=== PATIENT | female | born 1965 | race Caucasian/White ===

== ENCOUNTER 2016-09-19 21:00 | Inpatient (IN) | payer OTHER ==
[~2016-09-19] VITALS: Ht 165.1 cm; Wt 56.6 kg
[~2016-09-19 21:00] MED LIST: ABILIFY5 MG PO; AMBIEN10 MG PO; ATIVAN0.5 MG PO; COLACE100 MG PO; ENDOCET 5-3251 EACH PO; KLOR-CON SPRIN10 MEQ PO; LEXAPRO10 MG PO; SPIRIVA RESPIMAT4 GM IH; TUMS500 MG PO; TYLENOL EXTRA500 MG PO; VITAMIN C500 M1 PO
[2016-09-19 21:46] LABS: HEMATOCRIT 37.2 % (36.0-46.0); MCH 29.6 PG (29.0-34.0); MCHC 33.6 G/DL (30.0-36.0); MCV 87.9 FL (83-99); MEAN PLAT.VOLUME 9.6 uM^3 (9.5-12.4); PLATELET COUNT 244 K/uL (156-360); RBC DIS.WIDTH-CV 14.7 % (11.8-14.6); RBC DIS.WIDTH-SD 47.6 % (39-53); RED BLOOD COUNT 4.23 M/uL (3.80-5.20); WHITE BLOOD COUNT 5.9 K/uL (4.1-10.2)
[2016-09-19 21:57] LABS: CHLORIDE 106 mEq/L (99-109); POTASSIUM 4.2 mEq/L (3.7-5.4); SODIUM 142 mEq/L (136-147)
[2016-09-19 21:59] LABS: GLUCOSE 113 mg/dL (70-99)
[2016-09-19 22:00] LABS: ANION GAP 12 MEQ/L (2-14)
[2016-09-19 22:01] LABS: TOTAL BILIRUBIN 0.4 mg/dL (0.0-1.0)
[2016-09-19 22:03] LABS: ALKALINE PHOSPHATASE 69 IU/L (3-129); GFR ESTIMATE (CALCULATED) > 59 mL/min/
[2016-09-19 22:04] LABS: UREA NITROGEN (BUN) 10 mg/dL (9-23)
[2016-09-19 22:12] LABS: QUANTITATIVE HCG < 4.0 MIU/ML
[2016-09-20 01:01] VITALS: BP 125/69
[2016-09-20 04:32] VITALS: BP 118/73
[2016-09-20 08:36] VITALS: BP 95/57
[2016-09-20 12:07] VITALS: BP 101/49
[2016-09-20 16:04] VITALS: BP 96/58
[2016-09-20 19:21] VITALS: BP 95/59
[2016-09-21 00:11] VITALS: BP 110/63
[2016-09-21 03:11] VITALS: BP 101/57
[2016-09-21 07:20] LABS: EOSINOPHIL (%) 0.5 % (0-5); HEMATOCRIT 30.8 % (36.0-46.0); IMMATURE GRANULOCYTE (%) 0.3 % (0.0-0.7); INSTRUMENT ABS NEUTROPHIL CT 3.1 K/uL; LYMPHOCYTE COUNT 0.5 K/uL (1.0-2.8); MCH 29.2 PG (29.0-34.0); MCHC 32.5 G/DL (30.0-36.0); MCV 90.1 FL (83-99); MEAN PLAT.VOLUME 9.7 uM^3 (9.5-12.4); MONOCYTE (%) 7.8 % (3-12); MONOCYTE COUNT 0.3 K/uL (0-0.8); NEUTROPHIL (%) 77.4 % (45-76); NEUTROPHIL COUNT 3.1 K/uL (1.8-6.4); PLATELET COUNT 182 K/uL (156-360); RBC DIS.WIDTH-CV 14.9 % (11.8-14.6); RBC DIS.WIDTH-SD 49.7 % (39-53); RED BLOOD COUNT 3.42 M/uL (3.80-5.20)
[2016-09-21 07:31] LABS: ANION GAP 3 MEQ/L (2-14); CHLORIDE 105 MEQ/L (99-109); GFR ESTIMATE (CALCULATED) > 59 mL/min/; GLUCOSE 112 mg/dL (70-99); POTASSIUM 3.8 MEQ/L (3.7-5.4); SAMPLE HEMOLYSIS CHECK 0; SAMPLE ICTERIC CHECK 0; SAMPLE LIPEMIA CHECK 0; SODIUM 138 MEQ/L (136-147); UREA NITROGEN (BUN) 5 mg/dL (9-23)
[2016-09-21 07:57] LABS: C DIFF TOXIN NEGATIVE (NEGATIVE); PROBE CHECK PASS; SPECIMEN PROCESSING CONTROL PASS
[2016-09-21 08:00] VITALS: BP 98/60
[2016-09-21 16:00] VITALS: BP 101/57
[2016-09-21 23:28] VITALS: BP 104/65
[2016-09-22 07:46] LABS: EOSINOPHIL (%) 2.3 % (0-5); EOSINOPHIL COUNT 0.1 K/uL (0-0.3); HEMATOCRIT 29.6 % (36.0-46.0); INSTRUMENT ABS NEUTROPHIL CT 1.5 K/uL; LYMPHOCYTE COUNT 0.5 K/uL (1.0-2.8); MCH 29.5 PG (29.0-34.0); MCHC 32.4 G/DL (30.0-36.0); MCV 91.1 FL (83-99); MEAN PLAT.VOLUME 10.1 uM^3 (9.5-12.4); MONOCYTE COUNT 0.2 K/uL (0-0.8); NEUTROPHIL (%) 66.6 % (45-76); NEUTROPHIL COUNT 1.5 K/uL (1.8-6.4); PLATELET COUNT 154 K/uL (156-360); RBC DIS.WIDTH-CV 14.6 % (11.8-14.6); RBC DIS.WIDTH-SD 49.3 % (39-53); RED BLOOD COUNT 3.25 M/uL (3.80-5.20)
[2016-09-22 07:47] LABS: WHITE BLOOD COUNT 2.2 K/uL (4.1-10.2)
[2016-09-22 08:13] VITALS: BP 107/64
[2016-09-22 16:16] VITALS: BP 110/61
[2016-09-22 23:55] VITALS: BP 100/60
[2016-09-23 07:09] LABS: ALKALINE PHOSPHATASE 51 IU/L (3-129); ANION GAP 4 MEQ/L (2-14); CHLORIDE 106 MEQ/L (99-109); GFR ESTIMATE (CALCULATED) > 59 mL/min/; GLUCOSE 91 mg/dL (70-99); SAMPLE HEMOLYSIS CHECK 0; SAMPLE ICTERIC CHECK 0; SAMPLE LIPEMIA CHECK 0; SODIUM 142 MEQ/L (136-147); TOTAL BILIRUBIN 0.3 MG/DL (0.0-1.0); UREA NITROGEN (BUN) 4 mg/dL (9-23)
[2016-09-23 07:13] LABS: EOSINOPHIL (%) 2.7 % (0-5); EOSINOPHIL COUNT 0.1 K/uL (0-0.3); HEMATOCRIT 29.9 % (36.0-46.0); IMMATURE GRANULOCYTE (%) 0.3 % (0.0-0.7); INSTRUMENT ABS NEUTROPHIL CT 2.6 K/uL; LYMPHOCYTE COUNT 0.4 K/uL (1.0-2.8); MCH 29.1 PG (29.0-34.0); MCHC 32.1 G/DL (30.0-36.0); MCV 90.6 FL (83-99); MEAN PLAT.VOLUME 10.1 uM^3 (9.5-12.4); MONOCYTE (%) 7.2 % (3-12); MONOCYTE COUNT 0.2 K/uL (0-0.8); NEUTROPHIL (%) 76.6 % (45-76); NEUTROPHIL COUNT 2.6 K/uL (1.8-6.4); PLATELET COUNT 157 K/uL (156-360); RBC DIS.WIDTH-CV 14.6 % (11.8-14.6); RBC DIS.WIDTH-SD 48.8 % (39-53)
[2016-09-23 07:33] LABS: WHITE BLOOD COUNT 3.3 K/uL (4.1-10.2)
[2016-09-23 08:46] VITALS: BP 107/62
[2016-09-23 15:20] VITALS: BP 105/67
[2016-09-23 16:54] LABS: ADD MIUA? NO; BILIRUBIN NEGATIVE; BLOOD NEGATIVE; COLOR STRAW ((YELLOW)); GLUCOSE (STRIP) NEGATIVE; KETONES NEGATIVE; LEUKOCYTES NEGATIVE; NITRITE NEGATIVE; PROTEIN (STRIP) NEGATIVE; SPECIFIC GRAVITY 1.009 (1.000-1.030); UCUL ADDED? NO; UROBILINOGEN 0.2 MG/DL (0.2-1.0)
[2016-09-23 23:46] VITALS: BP 128/64
[2016-09-24 06:20] LABS: EOSINOPHIL (%) 3.1 % (0-5); EOSINOPHIL COUNT 0.1 K/uL (0-0.3); HEMATOCRIT 31.2 % (36.0-46.0); IMMATURE GRANULOCYTE (%) 0.3 % (0.0-0.7); INSTRUMENT ABS NEUTROPHIL CT 2.1 K/uL; LYMPHOCYTE COUNT 0.4 K/uL (1.0-2.8); MCH 29.8 PG (29.0-34.0); MCV 90.2 FL (83-99); MEAN PLAT.VOLUME 9.7 uM^3 (9.5-12.4); MONOCYTE (%) 8.6 % (3-12); MONOCYTE COUNT 0.3 K/uL (0-0.8); NEUTROPHIL (%) 73.2 % (45-76); NEUTROPHIL COUNT 2.1 K/uL (1.8-6.4); PLATELET COUNT 174 K/uL (156-360); RBC DIS.WIDTH-CV 14.4 % (11.8-14.6); RBC DIS.WIDTH-SD 47.1 % (39-53); RED BLOOD COUNT 3.46 M/uL (3.80-5.20); WHITE BLOOD COUNT 2.9 K/uL (4.1-10.2)
[2016-09-24 08:30] VITALS: BP 108/64
[2016-09-24 16:00] VITALS: BP 104/69
[2016-09-24 23:28] VITALS: BP 95/53
[2016-09-25 01:12] VITALS: BP 100/58
[2016-09-25 03:47] VITALS: BP 125/73
[2016-09-25 05:57] LABS: ANION GAP 4 MEQ/L (2-14); CHLORIDE 105 MEQ/L (99-109); GFR ESTIMATE (CALCULATED) > 59 mL/min/; GLUCOSE 99 mg/dL (70-99); POTASSIUM 3.8 MEQ/L (3.7-5.4); SAMPLE HEMOLYSIS CHECK 0; SAMPLE ICTERIC CHECK 0; SAMPLE LIPEMIA CHECK 0; SODIUM 141 MEQ/L (136-147); UREA NITROGEN (BUN) 2 mg/dL (9-23)
[2016-09-25 07:15] VITALS: BP 108/71
[2016-09-25 16:00] VITALS: BP 106/59
[2016-09-26 00:38] VITALS: BP 104/51
[2016-09-26 03:26] VITALS: BP 97/65
[2016-09-26 07:36] VITALS: BP 109/55
[2016-09-26 15:42] VITALS: BP 114/71
[2016-09-26 19:37] VITALS: BP 119/70
[2016-09-26 23:38] VITALS: BP 115/66
[2016-09-27] MEDS ORDERED: METOCLOPRAMIDE10 MG PO (06:38)
== END 2016-09-27 08:37 | disposition home or self-care (01) | DRG 389 ==
LOC: EME 21:00 → 2EASTP 23:39 → EDOF 23:39 → 2EASTP 09-20 00:52
PROVIDERS: Family Medicine; Internal Medicine; Internal Medicine Gastroenterology
DX: K56.7 Ileus, unspecified (principal); K52.0 Gastroenteritis and colitis due to radiation; K62.4 Stenosis of anus and rectum; G47.00 Insomnia, unspecified; F41.9 Anxiety disorder, unspecified; C20 Malignant neoplasm of rectum; C77.9 Secondary and unspecified malignant neoplasm of lymph node, unspecified; F32.9 Major depressive disorder, single episode, unspecified; G54.0 Brachial plexus disorders; D64.9 Anemia, unspecified; Z92.21 Personal history of antineoplastic chemotherapy; Z92.3 Personal history of irradiation; Z88.6 Allergy status to analgesic agent
CPT/HCPCS: 74020; 74022; 74176; 74177; 80048; 80053; 80069; 81003; 84100; 84702; 85025; 85027; 87045; 87046; 87177; 87493; 87506; 99281; 99285; J2270; J2405; J2765; J7030; Q0164